=== PATIENT | female | born 1975 | race Caucasian/White ===

== ENCOUNTER 2020-09-20 20:37 | Inpatient (IN) | payer OTHER ==
[~2020-09-20] VITALS: Ht 157.5 cm; Wt 87.1 kg
[~2020-09-20 20:37] MED LIST: ASPIRIN CHEWABL81 MG PO; AUGMENTIN 875-1 EACH PO
[2020-09-20 21:09] LABS: HEMOGLOBIN 14.8 gm/dl (12.3-15.3); RED BLOOD COUNT 4.9 M/UL (4.00-5.10); WHITE BLOOD COUNT 15.9 K/UL (4.5-11.0)
[2020-09-20 21:32] LABS: BUN/CREATININE RATIO 22 (0-10)
[2020-09-21] MEDS ORDERED: TRULICITY0.75 MG/0. SQ (01:17)
[2020-09-21] MEDS ORDERED: LINZESS290 MCG PO (01:17)
[2020-09-21] MEDS ORDERED: JARDIANCE25 MG PO (01:24)
[2020-09-21] MEDS ORDERED: DULOXETINE HCL30 MG PO (01:24)
[2020-09-21] MEDS ORDERED: GLUCOPHAGE 500500 MG PO (01:24)
[2020-09-21] MEDS ORDERED: METOPROLOL SUCC50 MG PO (01:25)
[2020-09-21] MEDS ORDERED: LEVOTHYROXINE50 MCG PO (01:25)
[2020-09-21] MEDS ORDERED: LISINOPRIL40 MG PO (01:25)
[2020-09-21] MEDS ORDERED: VITAMIN B-121000 MCG PO (01:26)
[2020-09-22] MEDS ORDERED: PERCOCET 5/325 T1 EA PO (12:18)
[2020-09-22] MEDS ORDERED: CYCLOBENZAPRINE10 MG PO (12:18)
== END 2020-09-23 17:36 | disposition home or self-care (01) | DRG 184 ==
LOC: EDBD 20:37 → ER1 20:37 → M/S 23:15 → CDU 23:15 → M/S 09-21 00:39
PROVIDERS: Internal Medicine; ADMIT Surgery
DX: S22.41XA Multiple fractures of ribs, right side, initial encounter for closed fracture (principal); S22.21XA Fracture of manubrium, initial encounter for closed fracture; I10 Essential (primary) hypertension; T23.112A Burn of first degree of left thumb (nail), initial encounter; Z20.822 Contact with and (suspected) exposure to COVID-19; E11.9 Type 2 diabetes mellitus without complications; Z82.49 Family history of ischemic heart disease and other diseases of the circulatory system; V49.88XA Car occupant (driver) (passenger) injured in other specified transport accidents, initial encounter; Y92.488 Other paved roadways as the place of occurrence of the external cause; Z98.890 Other specified postprocedural states; Z88.2 Allergy status to sulfonamides; Z88.8 Allergy status to other drugs, medicaments and biological substances
CPT/HCPCS: 70450; 71045; 71260; 72125; 72128; 72131; 72170; 73130; 80053; 80307; 81001; 82962; 83605; 84484; 85025; 85610; 85730; 86850; 86900; 86901; 90471; 90714; 93005; 94760; 96374; 99285; G0378; G0480; J1885; J2270; J2405; Q9967; U0002

== ENCOUNTER → 2021-01-16 | Outpatient (CLI) | payer OTHER ==
[~2021-01-16] MED LIST changes: +CYCLOBENZAPRINE10 MG PO; +DULOXETINE HCL30 MG PO; +GLUCOPHAGE 500500 MG PO; +JARDIANCE25 MG PO; +LEVOTHYROXINE50 MCG PO; +LINZESS290 MCG PO; +LISINOPRIL40 MG PO; +METOPROLOL SUCC50 MG PO; +PERCOCET 5/325 T1 EA PO; +TRULICITY0.75 MG/0. SQ; +VITAMIN B-121000 MCG PO
== END ==
LOC: KOH-I 08:00
DX: R06.00 Dyspnea, unspecified (principal)
CPT/HCPCS: 71250

== ENCOUNTER 2021-09-04 09:37 | Inpatient (IN) | payer OTHER ==
[~2021-09-04] VITALS: Ht 157.5 cm; Wt 81.6 kg
[2021-09-04 10:44] LABS: HEMOGLOBIN 15.1 gm/dl (12.3-15.3); RED BLOOD COUNT 5.34 M/UL (4.00-5.10); WHITE BLOOD COUNT 13.2 K/UL (4.5-11.0)
[2021-09-04 11:25] LABS: BUN/CREATININE RATIO 36 (0-10)
[2021-09-05 01:43] LABS: HEMOGLOBIN 13.2 gm/dl (12.3-15.3); WHITE BLOOD COUNT 11.8 K/UL (4.5-11.0)
[2021-09-05 01:54] LABS: RED BLOOD COUNT 4.74 M/UL (4.00-5.10)
[2021-09-05 02:07] LABS: BUN/CREATININE RATIO 37 (0-10)
[2021-09-05] MEDS ORDERED: ASPIRIN EC81 MG PO (11:06)
[2021-09-05] MEDS ORDERED: JARDIANCE25 MG PO (11:06)
[2021-09-05] MEDS ORDERED: LOPRESSOR 25 MG25 MG PO (11:06)
[2021-09-05] MEDS ORDERED: COZAAR 50MG TAB50 MG PO (11:06)
[2021-09-05] MEDS ORDERED: LEVOTHYROXINE50 MCG PO (11:06)
[2021-09-05] MEDS ORDERED: LIPITOR40 MG PO (11:06)
[2021-09-05] MEDS ORDERED: TRULICITY0.75 MG/0. SQ (11:06)
[2021-09-05] MEDS ORDERED: GLUCOPHAGE 500500 MG PO (11:06)
== END 2021-09-05 12:30 | disposition home or self-care (01) | DRG 273 ==
LOC: ER1 09:37 → CDU 12:00 → PROG CARE 17:13
PROVIDERS: Emergency Medicine; Physician Assistant; ADMIT Internal Medicine
PROC: 02583ZZ Destruction of Conduction Mechanism, Percutaneous Approach (ICD-10-PCS; principal; 2021-09-04)
PROC: 4A023FZ Measurement of Cardiac Rhythm, Percutaneous Approach (ICD-10-PCS; 2021-09-04)
PROC: 4A0234Z Measurement of Cardiac Electrical Activity, Percutaneous Approach (ICD-10-PCS; 2021-09-04)
PROC: 02K83ZZ Map Conduction Mechanism, Percutaneous Approach (ICD-10-PCS; 2021-09-04)
PROC: B24BZZZ Ultrasonography of Heart with Aorta (ICD-10-PCS; 2021-09-04)
DX: I48.92 Unspecified atrial flutter (principal); I21.4 Non-ST elevation (NSTEMI) myocardial infarction; E11.65 Type 2 diabetes mellitus with hyperglycemia; Z20.822 Contact with and (suspected) exposure to COVID-19; I10 Essential (primary) hypertension; I08.1 Rheumatic disorders of both mitral and tricuspid valves; E03.9 Hypothyroidism, unspecified; Z79.01 Long term (current) use of anticoagulants; Z79.82 Long term (current) use of aspirin; Z98.890 Other specified postprocedural states; Z88.2 Allergy status to sulfonamides; Z88.8 Allergy status to other drugs, medicaments and biological substances; Z82.49 Family history of ischemic heart disease and other diseases of the circulatory system; Z83.3 Family history of diabetes mellitus; Z79.4 Long term (current) use of insulin
CPT/HCPCS: 36415; 71045; 80053; 80307; 81001; 82009; 82550; 82553; 82962; 84439; 84443; 84484; 85025; 85379; 85610; 85730; 93005; 93312; 93320; 93609; 93620; 93621; 96374; 96375; 99152; 99153; 99285; C1730; C1733; C1766; J1200; J1644; J2250; J3010; J7040; U0002

== ENCOUNTER → 2021-11-06 | Outpatient (CLI) | payer OTHER ==
[~2021-11-06] MED LIST changes: +ASPIRIN EC81 MG PO; +COZAAR 50MG TAB50 MG PO; +LIPITOR40 MG PO; +LOPRESSOR 25 MG25 MG PO
== END ==
LOC: HEART 5 07:30
DX: I20.9 Angina pectoris, unspecified (principal)
CPT/HCPCS: 78452; A9502; J2785

== ENCOUNTER → 2021-12-12 | Outpatient (CLI) | payer OTHER ==
[~2021-12-12] MED LIST changes: +ISOSORBIDE DINI30 MG PO; +LISINOPRIL5 MG PO; +RANEXA500 MG PO
[2021-12-12 13:28] LABS: RED BLOOD COUNT 4.71 M/UL (4.00-5.10); WHITE BLOOD COUNT 11.7 K/UL (4.5-11.0)
[2021-12-12 13:57] LABS: BUN/CREATININE RATIO 24 (0-10)
== END ==
LOC: LAB 12:57
PROVIDERS: Internal Medicine Cardiovascular Disease
DX: I20.9 Angina pectoris, unspecified (principal); R94.39 Abnormal result of other cardiovascular function study; I10 Essential (primary) hypertension
CPT/HCPCS: 36415; 71045; 80048; 85025

== ENCOUNTER → 2021-12-13 | Outpatient (CLI) | payer OTHER | LOC: CATH 12:07 | DX: I25.118 Atherosclerotic heart disease of native coronary artery with other forms of angina pectoris (principal); I10 Essential (primary) hypertension; E11.9 Type 2 diabetes mellitus without complications; E03.9 Hypothyroidism, unspecified; E78.5 Hyperlipidemia, unspecified; Z88.2 Allergy status to sulfonamides; Z88.8 Allergy status to other drugs, medicaments and biological substances; Z79.84 Long term (current) use of oral hypoglycemic drugs; Z79.899 Other long term (current) drug therapy | CPT/HCPCS: 82962; 84703; 99152; 99153; C1769; C1894; J1644; J2250; J3010; Q9967 ==